=== PATIENT | female | born 1995 | race Caucasian/White ===

== ENCOUNTER 2016-07-18 01:03 | Outpatient (CLI) | payer OTHER ==
[~2016-07-18] VITALS: Ht 172.7 cm; Wt 98.0 kg
[2016-07-18 01:06] VITALS: BP 134/70
[2016-07-19] MEDS ORDERED: PRENTAB9 PO (15:14)
--- NOTE | 2016-07-19 15:56 | IPNPDOC ---
Text Note Date of Service The patient was seen on 07/18/16. NOTE Late entry for encounter on 07/18. Renny is a 21yo with SIUP at 40wk presenting with regular ctx. No LOF, no vb, feels good movement. States she drank castor oil in orange juice and began painfully regularly deanne after that. Vitals wnl, afebrile General:WDWN, NAD, uncomfortable Abdomen: gravid, soft, NTTP, ctx mild SCE (L&D RN as nurse behavioral health care): /-2, unchanged on re-check after 2 hours NST reactive with mod ajith, +accels, -decels Eldora: ctx q3-4min Assessment: Renny is a 21yo with SIUP at 40wk NOT in active labor with no cervical jacket changer 2hr despite regular ctx likely caused by drinking castor oil. Normal vital signs. Benign exam. Reassuring status. Plan: -Maintain OB appt today -Return precautions discussed Dr. Johnnie Mullins MD VS,Sawyer, I+O VS, Reinaldobone, I+O Vital Signs Date Time Temp Pulse Resp B/P (MAP) Pulse Ox O2 Delivery O2 Flow Rate FiO2 07/18/16 01:06 98.4 83 18 134/70 (91) JOHNNIE MULLINS MD Jul 19, 2016 15:56
[2016-07-19] MEDS ORDERED: ACET50TA PO (16:13)
[2016-07-19] MEDS ORDERED: HYDR-3348 PO (16:14)
== END 2016-07-18 03:20 | disposition home or self-care (01) ==
LOC: M LDO 01:03
PROVIDERS: ATTEND Obstetrics & Gynecology
DX: O47.1 False labor at or after 37 completed weeks of gestation (principal); Z3A.40 40 weeks gestation of pregnancy

== ENCOUNTER 2016-07-19 14:58 | Inpatient (IN) | payer OTHER ==
[~2016-07-19] VITALS: Ht 172.7 cm; Wt 98.0 kg
[2016-07-19] VITALS (23 sets, daily range): BP systolic 103–143; BP diastolic 54–84
[2016-07-19] MEDS ORDERED: PRENTAB9 PO (15:14)
[2016-07-19] MEDS ORDERED: LR 1,000 ML IV SCH (15:51)
[2016-07-19] MEDS ORDERED: LACTATED RINGER'S 1000 ML IV STA (15:51)
--- NOTE | 2016-07-19 16:11 | HPEPDOC ---
Obstetrical History & Physical General Date of Admission Jul 19, 2016 at 15:44 History of Present Illness Renny is a 21yo with SIUP at 40w2d by first trimester u/s presenting to L&D with regular painful ctx since this morning. No LOF, no vaginal bleeding. Feels good movement. 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 cannot rule out HGSIL (needs post- colposcopy) course: uncomplicated Chief Complaint: Contractions, term Information Provided By: Patient Care Care: Good Care Dating Final EDC: Jul 17, 2016 Final EDC by: 1st trimester (US) Antepartum Course Diagnos(e)s Uncomplicated, transfer-in from [facility] at 22 weeks Height (inches): 69 Pre- weight (lbs.): 183 Admission Weight (lbs.): 220 Change in Weight (lbs.): 37 Past Medical History Past Obstetrical History : Past Obstetrical History: [employer] History: Abnormal Pap (LEEP for HGSIL involving glands with follow-up papsmear LGSIL, cannot rule out HGSIL (needs PP colpo)) Past Medical History Medical History Headaches Surgical History: Other (LEEP) Family History Significant Family History: No pertinent family hx Social History Marital Status: Family situation: Spouse/partner home Psychosocial History: No pertinent psych hx * Smoker: non-smoker Alcohol: Denies Drugs: denies Imunizations Tdap status: current Influenza Status: current Allergies Coded Allergies: No Known Allergies (Unverified , 07/19/16) Medications Scheduled Multivitamins/ ( 27-0.8 mg) 1 Tab Tab, 1 TAB PO DAILY Physical Examination Physical Examination GENERAL: Alert and oriented times three. BREAST: . ABDOMEN: Gravid and non-tender to touch. FETUS: Is vertex (VTX) by sterile vaginal examination (SVE) per RN EXTREMITIES: trace edema of BLE Vital Signs/I&O Vital Signs Date Time Temp Pulse Resp B/P (MAP) Pulse Ox O2 Delivery O2 Flow Rate FiO2 07/19/16 15:23 97.6 69 18 135/78 (97) Pertinent Laboratoy Data Blood Type: A+ RBC Antibody Screen: Negative HIV: Negative Hepatitis B: Negative Hepatitis C: Unknown Rapid Plasma Reagin: Nonreactive Rubella: Immune Varicella: Immune Chlamydia/Gonorrhea: Negative Group B Streptococcus: Negative Glucose Tolerance Test: 113 Anatomy Ultrasound Ultrasound Date: Mar 04, 2016 Placenta Location: Posterior Normal Anatomy: Yes Placenta Previa: No Steroid Therapy Steroid Therapy: No Vaginal Examination Dilation: 7 cm Effacement: 80+% Station: -1, 0 Cervical Consistency: Soft Cervical Position: Anterior Presentation: Cephalic presentation Assessment Heart Rate (FHR): 120 Variability: Moderate Accelerations: Positive Decelerations: None Tocometer Contractions: Yes Frequency: regular, every 2-5 min. Duration: greater than 60 seconds Strength: palpated as moderate Assessment/Plan Assessment Renny is a 21yo with SIUP at 40w2d by first trimester u/s being admitted to L&D for active labor. SCE (per RN) 7/100/-1, no LOF. Cephalic by SCE. Vitals wnl, benign exam. GBS negative. Cat I FHRT with ctx q3-4min. 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 Diet: clear liquids Group B Streptococcus (GBS) negative Labs and intravenous (IV) per unit protocol. Lactated Ringers (LR): Bolus 1000 mL, then at 125 mL/hr. Anticipate normal spontaneous delivery () MD MEGAN Son KATRINA D. MD Jul 19, 2016 16:11
[2016-07-19] MEDS ORDERED: ACET50TA PO (16:13)
[2016-07-19] MEDS ORDERED: HYDR-3348 PO (16:14)
[2016-07-19 16:36] LABS: MEAN CORPUSCULAR HEMOGLOBIN 31.7 pg (27.0-33.0); MEAN CORPUSCULAR HGB CONC 34.2 g/dl (32.0-36.5); MEAN CORPUSCULAR VOLUME 92.8 fl (80.0-96.0); RED CELL DISTRIBUTION WIDTH 12.5 % (11.5-14.5); WHITE BLOOD COUNT 15.5 K/mm3 (4.0-10.0)
[2016-07-19] MEDS ORDERED: FENTANYL 2MCG/ML ROPIVACAINE 0.2% IN 0.9% NACL 200ML IVBAG As Ordered ONE (17:11)
[2016-07-19] MEDS ORDERED: NALOXONE INJ 0.4 MG/1 ML VIAL (J2310) IV PRN (17:15)
[2016-07-19] MEDS ORDERED: ePHEDrine SULFATE 25 MG/5 ML(5MG/ML) SYRINGE IV PRN (17:15)
[2016-07-19] MEDS ORDERED: diphenhydrAMINE INJ 50MG/ML VIAL (J1200) IV PRN (17:15)
[2016-07-19] MEDS ORDERED: ONDANSETRON 4MG/2ML VIAL (J2405) IV PRN (17:15)
[2016-07-19] MEDS ORDERED: EPIDURAL/PCA KEYS XX PRN (17:15)
[2016-07-19] MEDS ORDERED: LACTATED RINGER'S 1000 ML IV PRN (17:15)
[2016-07-19] MEDS ORDERED: REFRIGERATOR IV KEYS XX PRN (17:15)
[2016-07-19] MEDS ORDERED: EPIDURAL COMMENT XX SCH (17:15)
[2016-07-19] MEDS ORDERED: FENTANYL/ROPIVACAINE/NACL BAG 200 ML EPIDURAL SCH (17:15)
[2016-07-19] MEDS ORDERED: OXYTOCIN 30 UNITS IN 0.9% NaCl 500ML IV BAG (J2590) As Ordered ONE (19:25)
--- NOTE | 2016-07-19 20:18 | IPNPDOC ---
Text Note Date of Service The patient was seen on 07/19/16. NOTE Patient comfortable with epidural. SCE now 8/C/-1, AROM performed with moderate meconium noted. Cat I FHRT with ctx q5min. Will recheck in 2hr or earlier as indicated. Dr. Johnnie Mullins MD VS,Sawyer, I+O VS, Sawyer, I+O Laboratory Tests 07/19/16 16:23 Red Blood Count 4.21, Mean Corpuscular Volume 92.8, Mean Corpuscular Hemoglobin 31.7, Mean Corpuscular Hemoglobin Concent 34.2, Red Cell Distribution Width 12.5 Vital Signs Date Time Temp Pulse Resp B/P (MAP) Pulse Ox O2 Delivery O2 Flow Rate FiO2 07/19/16 19:18 98.0 07/19/16 19:03 70 18 126/72 (90) JOHNNIE MULLINS MD Jul 19, 2016 20:18
[2016-07-19] MEDS ORDERED: OXYTOCIN DRIP 30 UNITS in APPROPRIATE DILUENT 1 EA IV SCH (23:04)
--- NOTE | 2016-07-19 23:09 | DNPDOC ---
[facility] Delivery Note Delivery Note DATE OF DELIVERY: Jul 19, 2016 at 2232 PREDELIVERY DIAGNOSIS: 40w2d gestation and labor. POST DELIVERY DIAGNOSIS: Delivered. PROCEDURE: Spontaneous vaginal delivery NURSES DIRECTOR: Dr. Johnnie Mullins MD ANESTHESIA: epidural ESTIMATED BLOOD LOSS: 200 mL. FINDINGS: 8 pound 10 ounce male , Score 9/9 DELIVERY SUMMARY: Patient is a 21-year-old 1 now para 1001 who was admitted to labor and delivery for active labor at 7cm. At C/C/+2 patient began to push and had uncomplicated of viable male infant at 2232 on 07/19/16. Head delivered OA, restituted EDILSON, right shoulder delivered without difficulty followed by left shoulder and corpus. Right compound hand present. Baby placed on maternal chest. Infant very vigorous and spontaneous cry noted. Apgars 9/9. Umbilical cord clamped x2 and cut by FOB after a minute of delayed cord clamping. Placenta delivered intact with centrally inserted cord. Massage of uterine fundus and lower uterine segment until firm. Pitocin given per protocol. Left labial laceration and small 2mll inside the introitus (none of it perineal) repaired with 3-0 vicryl in standard fashion. Hemostasis noted. Mom and doing well. No complications. Dr. Johnnie Mullins MD [place] Woodruff MD Jul 19, 2016 23:09
[2016-07-19] MEDS ORDERED: MEASLES,MUMPS,RUBELLA VACCINE INJ (MMR-II) (90707) SC SCH (23:15)
[2016-07-19] MEDS ORDERED: DOCUSATE SODIUM 100 MG CAP PO PRN (23:15)
[2016-07-19] MEDS ORDERED: ACETAMINOPHEN 500 MG TAB PO PRN (23:15)
[2016-07-19] MEDS ORDERED: RHOGAM 300 MCG (1500 IU) INJ (J2790) IM SCH (23:15)
[2016-07-19] MEDS ORDERED: DIBUCAINE 1% OINTMENT 30GM TOP PRN (23:15)
[2016-07-20 00:27] VITALS: BP 135/62
[2016-07-20 01:01] VITALS: BP 128/60
[2016-07-20] MEDS: IBUPROFEN 800 MG TAB PO PRN ×2 (06:01→17:18)
[2016-07-20 06:10] VITALS: BP 143/60
[2016-07-20] MEDS: PRENATAL VITAMIN TAB PO SCH (08:42)
--- NOTE | 2016-07-20 11:10 | IPNPDOC ---
Progress Note Date of Service The patient was seen on 07/20/16 at 10:00. Progress Note Rounded on patient this morning, but she was in the shower. reports she is doing well with minimal discomfort and vaginal bleeding. Will plan to see patient tomorrow morning and possibly discharge then if she continues to do well. Vitals reviewed and wnl. Dr. Johnnie Mullins MD VS, I&O, 24H, Fishbone Vital Signs/I&O Vital Signs Date Time Temp Pulse Resp B/P (MAP) Pulse Ox O2 Delivery O2 Flow Rate FiO2 07/20/16 06:10 98.2 99 18 143/60 (87) I&O- Last 24 Hours up to 6 AM 07/20/16 06:00 Output Total 1350 ml Balance -1350 ml Laboratory Data 24H LABS Laboratory Tests 2 07/19/16 16:23: 07/20/16 00:47: Serology Scanned Report Hepatitis B Testing CBC/BMP Laboratory Tests 07/19/16 16:23 Red Blood Count 4.21, Mean Corpuscular Volume 92.8, Mean Corpuscular Hemoglobin 31.7, Mean Corpuscular Hemoglobin Concent 34.2, Red Cell Distribution Width 12.5 JOHNNIE MULLINS MD Jul 20, 2016 11:10
[2016-07-20 18:00] VITALS: BP 129/60
[2016-07-21 06:00] VITALS: BP 116/67
[2016-07-21] MEDS: PRENATAL VITAMIN TAB PO SCH (08:37)
[2016-07-21] MEDS ORDERED: COLA100C3 PO (11:30)
[2016-07-21] MEDS ORDERED: IBUP-1114 PO (11:30)
[2016-07-21] MEDS ORDERED: ACET50TA PO (11:30)
== END 2016-07-21 17:30 | disposition home or self-care (01) | DRG 775 ==
LOC: M LDO 14:58 → M LDI 15:44 → M OBS 07-20 00:54
PROVIDERS: ADMIT Obstetrics & Gynecology; ATTEND Obstetrics & Gynecology
PROC: 10E0XZZ Delivery of Products of Conception, External Approach (ICD-10-PCS; principal; 2016-07-19)
PROC: 0KQM0ZZ Repair Perineum Muscle, Open Approach (ICD-10-PCS; 2016-07-19)
DX: O48.0 Post-term pregnancy (principal); Z37.0 Single live birth; Z3A.40 40 weeks gestation of pregnancy; O32.6XX0 Maternal care for compound presentation, not applicable or unspecified; O70.1 Second degree perineal laceration during delivery

== ENCOUNTER 2017-07-11 18:14 | Emergency (ER) | payer OTHER ==
[2017-07-11 19:08] LABS: KETONE, URINE AUTO RFX NEGATIVE (NEGATIVE); LEUKOCYTE ESTERASE UR AUTO RFX NEGATIVE (NEGATIVE); NITRITE, URINE AUTO RFX NEGATIVE (NEGATIVE); RBC, URINE AUTO RFX 0 /HPF (0-3); SPECIFIC GRAVITY UR AUTO RFX 1.002 (1.002-1.035); SQUAM EPITHELIAL CELL UR AURFX 0 /HPF (0-6); WBC, URINE AUTO RFX 0 /HPF (0-3)
[2017-07-11] MEDS: ACETAMINOPHEN 325 MG TAB PO (19:30)
[2017-07-11 19:45] LABS: BASO % 0.3 % (0.0-1.0); EOS # 0.1 10^3/uL (0.0-0.50); EOS % 0.9 % (0.0-3.0); HEMATOCRIT 39.3 % (36.0-47.0); HEMOGLOBIN 13.9 g/dl (12.0-15.5); IMMATURE GRANULOCYTE % 0.1 % (0-3.0); LYMPH # 2.1 10^3/uL (1.5-6.5); MEAN CORPUSCULAR HEMOGLOBIN 31.2 pg (27.0-33.0); MEAN CORPUSCULAR HGB CONC 35.4 g/dl (32.0-36.5); MEAN CORPUSCULAR VOLUME 88.3 fl (80.0-96.0); MONO # 0.6 10^3/uL (0.0-0.8); MONO % 8.7 % (0.0-5.0); NEUTROPHILS # 4.2 10^3/uL (1.8-7.7); PLATELET COUNT, AUTOMATED 262 10^3/uL (150-450); RED BLOOD COUNT 4.45 10^6/uL (4.00-5.40); RED CELL DISTRIBUTION WIDTH 11.7 % (11.5-14.5)
[2017-07-11 19:58] LABS: ANION GAP 8 MEQ/L (8-16); BLOOD UREA NITROGEN 8 MG/DL (7-18); CALCIUM LEVEL 8.7 MG/DL (8.5-10.1); CARBON DIOXIDE LEVEL 24 MEQ/L (21-32); CHLORIDE LEVEL 109 MEQ/L (98-107); CREATININE FOR GFR 0.75 MG/DL (0.55-1.30); GLOMERULAR FILTRATION RATE > 60.0 (>60); GLUCOSE, FASTING 85 MG/DL (70-100); HCG, SERUM QUANTITATIVE 8 MIU/ML; POTASSIUM SERUM 3.9 MEQ/L (3.5-5.1); SODIUM LEVEL 141 MEQ/L (136-145)
[2017-07-11] MEDS: metroNIDAZOLE (FLAGYL) 500 MG TAB PO (20:32)
[2017-07-11 21:28] LABS: CHLAMYDIA DNA AMPLIFICATION NEGATIVE (NEGATIVE); GC DNA AMPLIFICATION NEGATIVE (NEGATIVE)
== END 2017-07-11 20:39 | disposition home or self-care (01) ==
LOC: M ED 18:14
DX: O03.4 Incomplete spontaneous abortion without complication (principal); O23.591 Infection of other part of genital tract in pregnancy, first trimester
CPT/HCPCS: 76801